=== PATIENT | female | born 1970 | race African-American/Black ===

== ENCOUNTER 2020-02-29 10:42 | Emergency (ER) | payer MEDICAID ==
[~2020-02-29] VITALS: Ht 157.5 cm; Wt 100.0 kg
[2020-02-29] MEDS ORDERED: FAMOTIDINE 20MG/2ML VIAL IV STA (11:38)
[2020-02-29] MEDS ORDERED: MORPHINE SULFATE 4 MG/ML CPJ (NOT FOR IM USE) IV STA (11:38)
[2020-02-29] MEDS ORDERED: ONDANSETRON HCL 4MG/2ML INJ IV STA (11:38)
[2020-02-29] MEDS ORDERED: SODIUM CHLORIDE 0.9% 1,000 ML IV ONE (11:38)
[2020-02-29 11:52] LABS: BASOPHILS % 0.5 % (0.0-2.0); EOSINOPHILS % 0.1 % (0.0-5.0); HEMATOCRIT. 47.3 % (36.0-48.0); HEMOGLOBIN. 15.8 g/dL (12.0-16.0); LYMPHOCYTES % 20.5 % (20.0-50.0); MEAN CORPUSCULAR HEMOGLOBIN 28.1 pg (28.0-32.0); MEAN PLATELET VOLUME 8.8 fl (7.4-10.4); MONOCYTES % 8.4 % (2.0-8.0); NEUTROPHILS % 70.5 % (40.0-76.0); PLATELET 348 x1000/uL (130-400); RED BLOOD CELL COUNT 5.63 mill/uL (4.2-5.4); RED CELL DISTRIBUTION WIDTH 16.6 % (11.6-14.6)
[2020-02-29 12:03] LABS: CHLORIDE 90 mEq/L (98-107)
[2020-02-29] MEDS ORDERED: KCL 20MEQ/100ML PREMIX 100 ML IV ONE (12:15)
[2020-02-29] MEDS ORDERED: MAGNESIUM CITRATE 300ML SOLUTION PO SCH (13:15)
[2020-02-29 13:24] LABS: INR 1.1
[2020-02-29 13:34] LABS: CLARITY URINE CLOUDY (CLEAR); COLOR URINE DARK YELLOW (YELLOW); KETONES URINE 3+ (NEGATIVE); LEUKOCYTE ESTERASE URINE 1+ (NEGATIVE); NITRITE URINE POSITIVE (NEGATIVE); OCCULT BLOOD URINE NEGATIVE (NEGATIVE); PH URINE 5.5 (4.5-8.0); PROTEIN URINE 2+ (NEGATIVE); SPECIFIC GRAVITY URINE 1.036 (1.005-1.030)
[2020-02-29 14:35] VITALS: BP 111/60
== END 2020-02-29 14:59 | disposition home or self-care (01) ==
LOC: ER 10:56
DX: R11.2 Nausea with vomiting, unspecified (principal); E87.6 Hypokalemia; J45.909 Unspecified asthma, uncomplicated; Z98.890 Other specified postprocedural states; Z98.84 Bariatric surgery status
CPT/HCPCS: 36415; 74018; 80053; 81003; 82962; 83690; 85025; 85610; 96361; 96365; 96375; 99285; J2270; J2405; J3480; J3490; J7030

== ENCOUNTER 2020-03-31 22:06 | Inpatient (IN) | payer MEDICAID ==
[~2020-03-31] VITALS: Ht 157.5 cm; Wt 110.7 kg
[2020-04-01 00:55] LABS: BASOPHILS % 0.7 % (0.0-2.0); EOSINOPHILS % 0.4 % (0.0-5.0); HEMATOCRIT. 40.1 % (36.0-48.0); HEMOGLOBIN. 13.4 g/dL (12.0-16.0); LYMPHOCYTES % 20.5 % (20.0-50.0); MEAN CORPUSCULAR HEMOGLOBIN 29.1 pg (28.0-32.0); MEAN CORPUSCULAR VOLUME 86.8 fL (81.0-99.0); MEAN PLATELET VOLUME 8.1 fl (7.4-10.4); MONOCYTES % 6.2 % (2.0-8.0); NEUTROPHILS % 72.2 % (40.0-76.0); PLATELET 331 x1000/uL (130-400); RED BLOOD CELL COUNT 4.62 mill/uL (4.2-5.4); RED CELL DISTRIBUTION WIDTH 17.7 % (11.6-14.6)
[2020-04-01 00:57] LABS: CHLORIDE 96 mEq/L (98-107)
[2020-04-01 01:02] LABS: ETHANOL BLOOD < 10 mg/dL
[2020-04-01 01:04] LABS: LDL CHOLESTEROL 102 mg/dL (5-100)
[2020-04-01 01:08] LABS: INR 1.1; PROTHROMBIN TIME 11.7 sec (9.6-11.0)
[2020-04-01] MEDS ORDERED: MORPHINE SULFATE 4 MG/ML CPJ (NOT FOR IM USE) IV STA (01:52)
[2020-04-01] MEDS ORDERED: ONDANSETRON HCL 4MG/2ML INJ IV STA (01:52)
[2020-04-01] MEDS ORDERED: POTASSIUM CHLORIDE 20MEQ TABLET SR PO ONE (02:00)
[2020-04-01] MEDS ORDERED: HYDRALAZINE 20MG/ML VIAL IV PRN (06:00)
[2020-04-01] MEDS ORDERED: CLONIDINE 0.1MG TABLET PO PRN (13:30)
[2020-04-01] MEDS ORDERED: IPRATROPIUM/ALBUTEROL 0.5-3(2.5)MG/3ML NEB HHN PRN (13:30)
[2020-04-01] MEDS ORDERED: DOCUSATE SODIUM 100MG CAPSULE PO PRN (13:30)
[2020-04-01] MEDS ORDERED: ACETAMINOPHEN 325MG TABLET PO PRN (13:30)
[2020-04-01] MEDS ORDERED: LORAZEPAM 0.5MG TABLET PO PRN (13:30)
[2020-04-01] MEDS: MORPHINE SULFATE 2 MG/ML CPJ (NOT FOR IM USE) IV PRN ×2 (14:08→21:43)
[2020-04-01] MEDS: ONDANSETRON HCL 4MG/2ML INJ IV PRN ×2 (14:09→23:57)
[2020-04-01] MEDS ORDERED: POTASSIUM CHLORIDE INJ 40 MEQ in DEXT 5% WATER 250 ML IV SCH (15:00)
[2020-04-01 16:40] VITALS: BP 111/72
[2020-04-01] MEDS ORDERED: MAGNESIUM/ALUMINUM HYDROXIDE/SIMETHICONE 30ML UDC PO PRN (18:00)
[2020-04-01] MEDS ORDERED: SODIUM CHLORIDE 0.9% 1000ML BAG (SEPSIS BOLUS) IV ONE (18:00)
[2020-04-01] MEDS ORDERED: PANTOPRAZOLE SODIUM 40 MG/VIAL IV ONE (18:00)
[2020-04-01] MEDS ORDERED: SODIUM CHLORIDE 0.9% 1,500 ML IV ONE (18:15)
[2020-04-01] MEDS: CALCIUM CARBONATE 500MG TABLET CHEW PO SCH (18:17)
[2020-04-01] MEDS ORDERED: SODIUM CHLORIDE 0.9% 1,000 ML IV ONE (18:30)
[2020-04-01] MEDS ORDERED: SODIUM CHLORIDE 0.9% 500 ML IV ONE (19:00)
[2020-04-01] MEDS ORDERED: MAGNESIUM 2 G PREMIX 50 ML IV ONE (19:30)
[2020-04-02] VITALS: BP 113/66
[2020-04-02] MEDS: LACTATED RINGERS 1,000 ML IV SCH ×3 (00:12→13:43)
[2020-04-02] MEDS: MORPHINE SULFATE 2 MG/ML CPJ (NOT FOR IM USE) IV PRN ×5 (02:08→21:33)
[2020-04-02 04:00] VITALS: BP 117/74
[2020-04-02 06:12] LABS: CHLORIDE 102 mEq/L (98-107)
[2020-04-02 06:27] LABS: LDL CHOLESTEROL 85 mg/dL (5-100)
[2020-04-02 06:29] LABS: CREATINE KINASE 28 IU/L (26-192)
[2020-04-02 06:30] LABS: HDL CHOLESTEROL 37 mg/dL (40-59)
[2020-04-02 06:33] LABS: BASOPHILS % 0.7 % (0.0-2.0); EOSINOPHILS % 2.5 % (0.0-5.0); HEMATOCRIT. 34.7 % (36.0-48.0); HEMOGLOBIN. 11.7 g/dL (12.0-16.0); LYMPHOCYTES % 25.6 % (20.0-50.0); MEAN CORPUSCULAR HEMOGLOBIN 29.3 pg (28.0-32.0); MEAN CORPUSCULAR VOLUME 86.6 fL (81.0-99.0); MEAN PLATELET VOLUME 8.2 fl (7.4-10.4); MONOCYTES % 7.6 % (2.0-8.0); NEUTROPHILS % 63.6 % (40.0-76.0); PLATELET 262 x1000/uL (130-400); RED CELL DISTRIBUTION WIDTH 17.7 % (11.6-14.6)
[2020-04-02] MEDS: ONDANSETRON HCL 4MG/2ML INJ IV PRN ×3 (06:59→21:32)
[2020-04-02 08:00] VITALS: BP 108/65
[2020-04-02] MEDS: CALCIUM CARBONATE 500MG TABLET CHEW PO SCH ×3 (08:36→16:49)
[2020-04-02] MEDS: PANTOPRAZOLE 40MG DR TABLET PO SCH (08:37)
[2020-04-02] MEDS ORDERED: POTASSIUM CHLORIDE INJ 40 MEQ in DEXT 5% WATER 250 ML IV SCH (11:00)
[2020-04-02 12:00] VITALS: BP 123/74
[2020-04-02 16:00] VITALS: BP 126/80
[2020-04-02 20:00] VITALS: BP 109/70
[2020-04-03] VITALS: BP 116/75
[2020-04-03] MEDS: LACTATED RINGERS 1,000 ML IV SCH ×3 (03:26→23:21)
[2020-04-03 04:00] VITALS: BP 119/85
[2020-04-03] MEDS: ONDANSETRON HCL 4MG/2ML INJ IV PRN ×4 (04:19→23:21)
[2020-04-03] MEDS: MORPHINE SULFATE 2 MG/ML CPJ (NOT FOR IM USE) IV PRN ×4 (04:19→21:22)
[2020-04-03] MEDS: PANTOPRAZOLE 40MG DR TABLET PO SCH (06:14)
[2020-04-03 07:14] LABS: CHLORIDE 104 mEq/L (98-107)
[2020-04-03 07:31] LABS: BASOPHILS % 0.7 % (0.0-2.0); EOSINOPHILS % 4.4 % (0.0-5.0); LYMPHOCYTES % 25.5 % (20.0-50.0); MEAN CORPUSCULAR HEMOGLOBIN 29.2 pg (28.0-32.0); MEAN CORPUSCULAR VOLUME 87.4 fL (81.0-99.0); MEAN PLATELET VOLUME 8.4 fl (7.4-10.4); MONOCYTES % 7.4 % (2.0-8.0); PLATELET 284 x1000/uL (130-400); RED BLOOD CELL COUNT 4.12 mill/uL (4.2-5.4); RED CELL DISTRIBUTION WIDTH 17.5 % (11.6-14.6)
[2020-04-03 08:00] VITALS: BP 93/50
[2020-04-03] MEDS: HYDROCODONE/APAP 7.5/325MG 1 TAB TABLET PO PRN (09:09)
[2020-04-03 12:00] VITALS: BP 102/61
[2020-04-03] MEDS ORDERED: POTASSIUM CHLORIDE 20MEQ TABLET SR PO NR (13:00)
[2020-04-03 16:00] VITALS: BP 100/65
[2020-04-03] MEDS ORDERED: SIMETHICONE 80MG TABLET CHEW PO PRN (16:45)
[2020-04-03] MEDS ORDERED: METOCLOPRAMIDE HCL 10MG/2ML VIAL IV NR (16:48)
[2020-04-03 20:00] VITALS: BP 111/71
[2020-04-04] VITALS: BP 111/71
[2020-04-04] MEDS: MORPHINE SULFATE 2 MG/ML CPJ (NOT FOR IM USE) IV PRN ×3 (02:57→12:58)
[2020-04-04 04:00] VITALS: BP 103/66
[2020-04-04] MEDS: LACTATED RINGERS 1,000 ML IV SCH ×2 (05:38→16:00)
[2020-04-04] MEDS: ONDANSETRON HCL 4MG/2ML INJ IV PRN ×3 (05:49→15:56)
[2020-04-04] MEDS: PANTOPRAZOLE 40MG DR TABLET PO SCH (06:24)
[2020-04-04 06:45] LABS: *AMPHETAMINES SCREEN URINE NEGATIVE (NEGATIVE); *BARBITURATES SCREEN URINE NEGATIVE (NEGATIVE); *BENZODIAZEPINES SCREEN URINE NEGATIVE (NEGATIVE); CANNABINOID URINE SCREEN PRESUMTIVE POSITIVE (NEGATIVE)
[2020-04-04 06:46] LABS: METHADONE URINE SCREEN NEGATIVE (NEGATIVE); OPIATES URINE SCREEN PRESUMTIVE POSITIVE (NEGATIVE); PHENCYCLIDINE URINE SCREEN NEGATIVE (NEGATIVE)
[2020-04-04 06:54] LABS: *COCAINE SCREEN URINE NEGATIVE (NEGATIVE)
[2020-04-04] MEDS ORDERED: DIATR MEGLU/DIATRIZOATE SOLN 120ML ONE (08:40)
[2020-04-04 08:51] VITALS: BP 109/77
[2020-04-04] MEDS ORDERED: PANT40TA4 PO (10:43)
[2020-04-04 12:00] VITALS: BP 110/78
[2020-04-04 13:12] VITALS: BP 110/78
[2020-04-04] MEDS ORDERED: FAMOTIDINE 20MG TABLET PO SCH (14:30)
[2020-04-04] MEDS: HYDROCODONE/APAP 7.5/325MG 1 TAB TABLET PO PRN (15:51)
[2020-04-04 16:48] VITALS: BP 100/66
[2020-04-05] MEDS ORDERED: FAMOTIDINE 20MG TABLET PO SCH (09:00)
== END 2020-04-04 17:45 | disposition home or self-care (01) | DRG 54 ==
LOC: ER 22:06 → EDBEDREQTM 23:42 → EDBEDREQSVC 23:42 → EDBEDREQ 23:42 → EDBEDREQTM 23:43 → 7WST 04-01 04:41 → EDBEDREQDT 04-01 04:58 → EDBEDREQ 04-01 04:58 → EDBEDREQTM 04-01 04:58 → ENRESERV 04-01 11:06 → CANRESERV 04-01 11:06 → ENRESERV 04-01 14:40 → 7WST 04-01 16:52 → 8WST 04-02 10:32
PROVIDERS: ADMIT Internal Medicine; ATTEND Internal Medicine
DX: G43.109 Migraine with aura, not intractable, without status migrainosus (principal); E43 Unspecified severe protein-calorie malnutrition; E66.01 Morbid (severe) obesity due to excess calories; E78.5 Hyperlipidemia, unspecified; E87.6 Hypokalemia; J45.909 Unspecified asthma, uncomplicated; K21.9 Gastro-esophageal reflux disease without esophagitis; I16.0 Hypertensive urgency; I10 Essential (primary) hypertension; M19.90 Unspecified osteoarthritis, unspecified site; Z20.828 Contact with and (suspected) exposure to other viral communicable diseases; M16.0 Bilateral primary osteoarthritis of hip; Z86.73 Personal history of transient ischemic attack (TIA), and cerebral infarction without residual deficits; Z68.41 Body mass index [BMI] 40.0-44.9, adult; Z98.84 Bariatric surgery status; Z79.899 Other long term (current) drug therapy
CPT/HCPCS: 36415; 70544; 70553; 71045; 74176; 74246; 80048; 80053; 80061; 80305; 80320; 82550; 83036; 83721; 83735; 83880; 84132; 84484; 85025; 93005; 96374; 99285; C9113; J2270; J2405; J2765; J3475; J3480; J7060; J7120; Q9963; G0480; U0003-CS

== ENCOUNTER 2020-04-23 19:20 | Inpatient (IN) | payer MEDICAID ==
[~2020-04-23] VITALS: Ht 157.5 cm; Wt 111.7 kg
[~2020-04-23 19:20] MED LIST: PANT40TA4 PO
[2020-04-23] MEDS ORDERED: MORPHINE SULFATE 4 MG/ML CPJ (NOT FOR IM USE) IV STA (20:25)
[2020-04-23] MEDS ORDERED: ONDANSETRON HCL 4MG/2ML INJ IV STA (20:25)
[2020-04-23] MEDS ORDERED: ASPIRIN 81MG TABLET PO ONE (20:30)
[2020-04-23] MEDS ORDERED: NITROGLYCERIN OINT 1GM/INCH UDPKT TD ONE (20:30)
[2020-04-23 21:04] LABS: CHLORIDE 93 mEq/L (98-107)
[2020-04-23 21:06] LABS: HCG SCREEN NEGATIVE
[2020-04-23 21:07] LABS: INR 1.1; PROTHROMBIN TIME 11.4 sec (9.6-11.0)
[2020-04-23 21:08] LABS: ETHANOL BLOOD < 10 mg/dL
[2020-04-23 21:14] LABS: BASOPHILS % 0.4 % (0.0-2.0); EOSINOPHILS % 0.1 % (0.0-5.0); HEMATOCRIT. 40.6 % (36.0-48.0); HEMOGLOBIN. 13.5 g/dL (12.0-16.0); LYMPHOCYTES % 17.1 % (20.0-50.0); MEAN CORPUSCULAR HEMOGLOBIN 29.2 pg (28.0-32.0); MEAN CORPUSCULAR VOLUME 87.8 fL (81.0-99.0); MEAN PLATELET VOLUME 8.9 fl (7.4-10.4); MONOCYTES % 7.4 % (2.0-8.0); PLATELET 486 x1000/uL (130-400); RED BLOOD CELL COUNT 4.63 mill/uL (4.2-5.4); RED CELL DISTRIBUTION WIDTH 16.2 % (11.6-14.6)
[2020-04-23] MEDS ORDERED: POTASSIUM CHLORIDE 20MEQ TABLET SR PO NR (22:30)
[2020-04-23] MEDS ORDERED: KCL 10MEQ/50ML PREMIX 50 ML IV ONE (22:30)
[2020-04-23] MEDS ORDERED: SODIUM CHLORIDE 0.9% 1,000 ML IV ONE (23:31)
[2020-04-24] MEDS ORDERED: MORPHINE SULFATE 2 MG/ML CPJ (NOT FOR IM USE) IV ONE ×2 (04:05→08:20)
[2020-04-24] MEDS ORDERED: ONDANSETRON HCL 4MG/2ML INJ ONE (08:21)
[2020-04-24 08:29] LABS: *AMPHETAMINES SCREEN URINE NEGATIVE (NEGATIVE); *BARBITURATES SCREEN URINE NEGATIVE (NEGATIVE); *BENZODIAZEPINES SCREEN URINE NEGATIVE (NEGATIVE); *COCAINE SCREEN URINE NEGATIVE (NEGATIVE); METHADONE URINE SCREEN NEGATIVE (NEGATIVE)
[2020-04-24 08:30] LABS: CANNABINOID URINE SCREEN PRESUMTIVE POSITIVE (NEGATIVE); OPIATES URINE SCREEN PRESUMTIVE POSITIVE (NEGATIVE); PHENCYCLIDINE URINE SCREEN NEGATIVE (NEGATIVE)
[2020-04-24] MEDS: MORPHINE SULFATE 2 MG/ML CPJ (NOT FOR IM USE) IV PRN ×4 (08:30→22:46)
[2020-04-24] MEDS: ONDANSETRON HCL 4MG/2ML INJ IV PRN ×2 (08:30→18:04)
[2020-04-24] MEDS ORDERED: ACETAMINOPHEN 325MG TABLET PO PRN (08:45)
[2020-04-24] MEDS: ENOXAPARIN 30MG/0.3ML SYR SUBCUT SCH ×2 (11:56→21:07)
[2020-04-24] MEDS: ASPIRIN 81MG TABLET PO SCH (11:56)
[2020-04-24] MEDS ORDERED: POTASSIUM CHLORIDE 20MEQ TABLET SR PO NR ×2 (12:00→17:00)
[2020-04-24] MEDS ORDERED: POTASSIUM CHLORIDE INJ 40 MEQ in SODIUM CHLORIDE 0.9% 250 ML IV NR (12:00)
[2020-04-24 16:00] VITALS: BP 89/52
[2020-04-24] MEDS ORDERED: REGADENOSON 0.4 MG/5 ML IV NR (17:45)
[2020-04-24 18:24] VITALS: BP 89/52
[2020-04-24] MEDS ORDERED: ASPI-1497 PO (19:03)
[2020-04-24 20:33] VITALS: BP 98/56
[2020-04-25] MEDS ORDERED: MAGNESIUM 2 G PREMIX 50 ML IV ONE
[2020-04-25] MEDS: SODIUM CHLORIDE 0.9% 1,000 ML IV SCH ×2 (00:35→17:39)
[2020-04-25] MEDS: ONDANSETRON HCL 4MG/2ML INJ IV PRN ×3 (00:37→13:28)
[2020-04-25 00:44] VITALS: BP 98/53
[2020-04-25] MEDS ORDERED: POTASSIUM CHLORIDE INJ 60 MEQ in DEXT 5% WATER 500 ML IV NR (01:00)
[2020-04-25 04:00] VITALS: BP 101/58
[2020-04-25] MEDS: MORPHINE SULFATE 2 MG/ML CPJ (NOT FOR IM USE) IV PRN ×4 (04:11→20:27)
[2020-04-25 08:12] VITALS: BP 113/66
[2020-04-25] MEDS: ENOXAPARIN 30MG/0.3ML SYR SUBCUT SCH ×2 (08:21→20:26)
[2020-04-25] MEDS ORDERED: POTASSIUM CHLORIDE 20MEQ TABLET SR PO SCH (09:00)
[2020-04-25] MEDS: ASPIRIN 81MG TABLET PO SCH (09:21)
[2020-04-25] MEDS: OMEPRAZOLE 20MG CAPSULE EXTENDED RELEASE PO SCH (10:33)
[2020-04-25 12:04] VITALS: BP 121/75
[2020-04-25 13:04] LABS: BASOPHILS % 0.6 % (0.0-2.0); EOSINOPHILS % 0.7 % (0.0-5.0); HEMATOCRIT. 37.7 % (36.0-48.0); HEMOGLOBIN. 12.5 g/dL (12.0-16.0); LYMPHOCYTES % 20.7 % (20.0-50.0); MEAN CORPUSCULAR HEMOGLOBIN 29.4 pg (28.0-32.0); MEAN PLATELET VOLUME 8.2 fl (7.4-10.4); MONOCYTES % 6.3 % (2.0-8.0); NEUTROPHILS % 71.7 % (40.0-76.0); PLATELET 352 x1000/uL (130-400); RED BLOOD CELL COUNT 4.24 mill/uL (4.2-5.4); RED CELL DISTRIBUTION WIDTH 16.1 % (11.6-14.6)
[2020-04-25 13:12] LABS: CHLORIDE 99 mEq/L (98-107)
[2020-04-25 13:18] LABS: LDL CHOLESTEROL 49 mg/dL (5-100)
[2020-04-25 13:20] LABS: HDL CHOLESTEROL 51 mg/dL (40-59)
[2020-04-25] MEDS ORDERED: BISACODYL 10MG SUPP PR NR (14:00)
[2020-04-25] MEDS ORDERED: BISACODYL 10MG SUPP PR PRN (14:00)
[2020-04-25 16:05] VITALS: BP 105/69
[2020-04-25] MEDS: MULTIVITAMINS,THER W-MINERALS TABLET PO SCH (17:36)
[2020-04-26] VITALS: BP 148/82
[2020-04-26] MEDS: SODIUM CHLORIDE 0.9% 1,000 ML IV SCH ×2 (02:48→07:00)
[2020-04-26] MEDS: MORPHINE SULFATE 2 MG/ML CPJ (NOT FOR IM USE) IV PRN ×4 (02:54→21:44)
[2020-04-26 04:00] VITALS: BP 110/68
[2020-04-26 07:04] LABS: BASOPHILS % 0.5 % (0.0-2.0); CHLORIDE 99 mEq/L (98-107); EOSINOPHILS % 2.3 % (0.0-5.0); HEMATOCRIT. 34.3 % (36.0-48.0); HEMOGLOBIN. 11.1 g/dL (12.0-16.0); MEAN CORPUSCULAR HEMOGLOBIN 28.9 pg (28.0-32.0); MEAN PLATELET VOLUME 8.5 fl (7.4-10.4); MONOCYTES % 8.5 % (2.0-8.0); NEUTROPHILS % 61.7 % (40.0-76.0); PLATELET 282 x1000/uL (130-400); RED BLOOD CELL COUNT 3.85 mill/uL (4.2-5.4); RED CELL DISTRIBUTION WIDTH 16.3 % (11.6-14.6)
[2020-04-26] MEDS: TRAMADOL 50MG TABLET PO PRN (07:21)
[2020-04-26] MEDS: OMEPRAZOLE 20MG CAPSULE EXTENDED RELEASE PO SCH (07:30)
[2020-04-26 08:00] VITALS: BP 120/77
[2020-04-26] MEDS: ENOXAPARIN 30MG/0.3ML SYR SUBCUT SCH ×2 (09:09→21:24)
[2020-04-26] MEDS: ASPIRIN 81MG TABLET PO SCH (09:10)
[2020-04-26] MEDS: POTASSIUM CHLORIDE 20MEQ TABLET SR PO SCH ×5 (09:10→23:30)
[2020-04-26] MEDS: ONDANSETRON HCL 4MG/2ML INJ IV PRN ×3 (09:10→21:44)
[2020-04-26] MEDS: MULTIVITAMINS,THER W-MINERALS TABLET PO SCH (09:11)
[2020-04-26 12:00] VITALS: BP 123/83
[2020-04-26 16:00] VITALS: BP 116/77
[2020-04-26] MEDS ORDERED: DIATR MEGLU/DIATRIZOATE SOLN 30ML PO SCH (16:30)
[2020-04-26] MEDS ORDERED: SORBITOL 70% SOLN 30ML PO NR (17:45)
[2020-04-26] MEDS ORDERED: MAGNESIUM/ALUMINUM HYDROXIDE/SIMETHICONE 30ML UDC PO PRN (17:45)
[2020-04-26 20:00] VITALS: BP 119/77
[2020-04-26] MEDS ORDERED: CALCIUM GLUCONATE 1,000 MG in DEXT 5% WATER 90 ML IV NR (20:00)
[2020-04-26 20:27] LABS: CHLORIDE 101 mEq/L (98-107)
[2020-04-26] MEDS ORDERED: IOHEXOL-300 100 ML BOTTLE ONE (23:50)
[2020-04-27] VITALS: BP 115/73
[2020-04-27] MEDS: SODIUM CHLORIDE 0.9% 1,000 ML IV SCH ×2 (01:37→07:00)
[2020-04-27] MEDS: POTASSIUM CHLORIDE 20MEQ TABLET SR PO SCH (01:38)
[2020-04-27] MEDS: TRAMADOL 50MG TABLET PO PRN (01:51)
[2020-04-27 04:00] VITALS: BP 123/77
[2020-04-27] MEDS: ONDANSETRON HCL 4MG/2ML INJ IV PRN ×4 (04:26→23:30)
[2020-04-27] MEDS: MORPHINE SULFATE 2 MG/ML CPJ (NOT FOR IM USE) IV PRN ×2 (04:27→10:43)
[2020-04-27 06:40] LABS: BASOPHILS % 0.4 % (0.0-2.0); HEMATOCRIT. 32.6 % (36.0-48.0); HEMOGLOBIN. 10.7 g/dL (12.0-16.0); LYMPHOCYTES % 29.9 % (20.0-50.0); MEAN CORPUSCULAR HEMOGLOBIN 29.2 pg (28.0-32.0); MEAN CORPUSCULAR VOLUME 88.7 fL (81.0-99.0); MEAN PLATELET VOLUME 8.2 fl (7.4-10.4); MONOCYTES % 9.6 % (2.0-8.0); NEUTROPHILS % 56.1 % (40.0-76.0); PLATELET 269 x1000/uL (130-400); RED BLOOD CELL COUNT 3.67 mill/uL (4.2-5.4); RED CELL DISTRIBUTION WIDTH 16.2 % (11.6-14.6)
[2020-04-27 07:04] LABS: CHLORIDE 102 mEq/L (98-107)
[2020-04-27] MEDS: OMEPRAZOLE 20MG CAPSULE EXTENDED RELEASE PO SCH (07:20)
[2020-04-27] MEDS ORDERED: POTASSIUM CHLORIDE 20MEQ TABLET SR PO SCH ×3 (07:45→15:00)
[2020-04-27 08:00] VITALS: BP 124/79
[2020-04-27] MEDS: MULTIVITAMINS,THER W-MINERALS TABLET PO SCH (09:00)
[2020-04-27] MEDS: ENOXAPARIN 30MG/0.3ML SYR SUBCUT SCH ×2 (09:56→20:06)
[2020-04-27 12:00] VITALS: BP 132/86
[2020-04-27] MEDS: POTASSIUM CHLORIDE INJ 40 MEQ in SODIUM CHLORIDE 0.9% 1,000 ML IV SCH (13:18)
[2020-04-27] MEDS: ASPIRIN 81MG TABLET PO SCH (15:26)
[2020-04-27 16:00] VITALS: BP 118/78
[2020-04-27] MEDS ORDERED: SORBITOL 70% SOLN 30ML PO SCH (16:15)
[2020-04-27] MEDS: HYDROCODONE/ACETAMINOPHEN 10/325MG TABLET PO PRN ×2 (16:23→22:45)
[2020-04-27] MEDS ORDERED: REGADENOSON 0.4 MG/5 ML IV NR (19:30)
[2020-04-27 20:25] VITALS: BP 127/79
[2020-04-28] VITALS: BP 127/79
[2020-04-28] MEDS: POTASSIUM CHLORIDE INJ 40 MEQ in SODIUM CHLORIDE 0.9% 1,000 ML IV SCH (01:24)
[2020-04-28 04:00] VITALS: BP_SYST 131; BP_SYST 142; BP_DIAS 59; BP_DIAS 70
[2020-04-28] MEDS: OMEPRAZOLE 20MG CAPSULE EXTENDED RELEASE PO SCH (06:12)
[2020-04-28] MEDS: HYDROCODONE/ACETAMINOPHEN 10/325MG TABLET PO PRN ×2 (06:19→12:40)
[2020-04-28 06:51] LABS: BASOPHILS % 0.8 % (0.0-2.0); EOSINOPHILS % 4.6 % (0.0-5.0); HEMATOCRIT. 36.8 % (36.0-48.0); HEMOGLOBIN. 11.8 g/dL (12.0-16.0); LYMPHOCYTES % 25.7 % (20.0-50.0); MEAN CORPUSCULAR HEMOGLOBIN 29.6 pg (28.0-32.0); MEAN CORPUSCULAR VOLUME 92.3 fL (81.0-99.0); MONOCYTES % 11.8 % (2.0-8.0); NEUTROPHILS % 57.1 % (40.0-76.0); PLATELET 285 x1000/uL (130-400); RED BLOOD CELL COUNT 3.98 mill/uL (4.2-5.4); RED CELL DISTRIBUTION WIDTH 16.9 % (11.6-14.6)
[2020-04-28 08:06] LABS: CHLORIDE 107 mEq/L (98-107)
[2020-04-28 08:09] VITALS: BP 126/74
[2020-04-28] MEDS: ASPIRIN 81MG TABLET PO SCH (09:00)
[2020-04-28] MEDS: MULTIVITAMINS,THER W-MINERALS TABLET PO SCH (09:00)
[2020-04-28] MEDS: ENOXAPARIN 30MG/0.3ML SYR SUBCUT SCH (10:27)
[2020-04-28 12:10] VITALS: BP 140/90
[2020-04-28] MEDS ORDERED: MORPHINE SULFATE 2 MG/ML CPJ (NOT FOR IM USE) IV SCH (13:00)
[2020-04-28] MEDS ORDERED: REGADENOSON 0.4 MG/5 ML IV ONE (13:10)
[2020-04-28 16:06] VITALS: BP 124/78
[2020-04-28] MEDS ORDERED: OXYC-515 MT ×2 (17:15→17:17)
[2020-04-28 17:24] VITALS: BP 124/78
[2020-04-28] MEDS ORDERED: POTASSIUM CHLORIDE INJ 40 MEQ in SODIUM CHLORIDE 0.9% 1,000 ML IV SCH (18:00)
== END 2020-04-28 17:57 | disposition home or self-care (01) | DRG 241 ==
LOC: ER 19:20 → MICUSO 23:31 → EDBEDREQTM 23:33 → EDBEDREQ 23:33 → 6WST 04-24 17:50
PROVIDERS: ADMIT Internal Medicine; ATTEND Internal Medicine
DX: K29.70 Gastritis, unspecified, without bleeding (principal); K21.9 Gastro-esophageal reflux disease without esophagitis; I69.354 Hemiplegia and hemiparesis following cerebral infarction affecting left non-dominant side; E78.5 Hyperlipidemia, unspecified; E43 Unspecified severe protein-calorie malnutrition; E83.42 Hypomagnesemia; E87.6 Hypokalemia; E87.8 Other disorders of electrolyte and fluid balance, not elsewhere classified; I10 Essential (primary) hypertension; J45.909 Unspecified asthma, uncomplicated; K22.2 Esophageal obstruction; R26.89 Other abnormalities of gait and mobility; D64.9 Anemia, unspecified; I25.10 Atherosclerotic heart disease of native coronary artery without angina pectoris; M16.0 Bilateral primary osteoarthritis of hip; K59.00 Constipation, unspecified; G43.109 Migraine with aura, not intractable, without status migrainosus; Z98.84 Bariatric surgery status; Z68.42 Body mass index [BMI] 45.0-49.9, adult; Z82.61 Family history of arthritis; Z80.9 Family history of malignant neoplasm, unspecified
CPT/HCPCS: 36415; 71045; 74018; 74177; 78452; 80048; 80053; 80061; 80305; 80320; 83735; 83880; 84132; 84145; 84443; 84484; 84703; 85025; 93005; 93017; 93306; 99291; A9500; J0610; J1650; J2270; J2405; J2785; J3475; J3480; J7030; J7050; J7060; Q9963; Q9967; G0480

== ENCOUNTER 2020-05-13 11:19 | Inpatient (IN) | payer MEDICAID ==
[~2020-05-13] VITALS: Ht 157.5 cm; Wt 113.4 kg
[~2020-05-13 11:19] MED LIST changes: +ASPI-1497 PO; +OXYC-515 MT
[2020-05-13] MEDS ORDERED: ONDANSETRON HCL 4MG/2ML INJ IV STA (12:12)
[2020-05-13] MEDS ORDERED: MORPHINE SULFATE 4 MG/ML CPJ (NOT FOR IM USE) IV STA (12:12)
[2020-05-13 12:23] LABS: BASOPHILS % 0.9 % (0.0-2.0); EOSINOPHILS % 0.4 % (0.0-5.0); HEMATOCRIT. 39.9 % (36.0-48.0); HEMOGLOBIN. 12.8 g/dL (12.0-16.0); LYMPHOCYTES % 15.7 % (20.0-50.0); MEAN CORPUSCULAR HEMOGLOBIN 29.3 pg (28.0-32.0); MEAN CORPUSCULAR VOLUME 91.3 fL (81.0-99.0); MEAN PLATELET VOLUME 7.9 fl (7.4-10.4); MONOCYTES % 3.9 % (2.0-8.0); NEUTROPHILS % 79.1 % (40.0-76.0); PLATELET 468 x1000/uL (130-400); RED BLOOD CELL COUNT 4.37 mill/uL (4.2-5.4); RED CELL DISTRIBUTION WIDTH 16.7 % (11.6-14.6)
[2020-05-13 12:29] LABS: CHLORIDE 99 mEq/L (98-107)
[2020-05-13] MEDS ORDERED: POTASSIUM CHLORIDE 20MEQ TABLET SR PO ONE (14:15)
[2020-05-13] MEDS ORDERED: MORPHINE SULFATE 4 MG/ML CPJ (NOT FOR IM USE) IV ONE (15:00)
[2020-05-13 20:09] LABS: CHLORIDE 101 mEq/L (98-107)
[2020-05-13] MEDS: MORPHINE SULFATE 2 MG/ML CPJ (NOT FOR IM USE) IV PRN (20:22)
[2020-05-13 21:00] VITALS: BP 106/71
[2020-05-13 21:48] VITALS: BP 106/71
[2020-05-13] MEDS ORDERED: ONDA4TAB5 PO (22:30)
[2020-05-13] MEDS ORDERED: TOPUD PO (22:31)
[2020-05-13] MEDS ORDERED: ONDANSETRON HCL 4MG TABLET PO PRN (23:00)
[2020-05-13] MEDS ORDERED: ACETAMINOPHEN 325MG TABLET PO PRN (23:00)
[2020-05-14] VITALS (7 sets, daily range): BP systolic 98–168; BP diastolic 59–78
[2020-05-14] MEDS: MORPHINE SULFATE 2 MG/ML CPJ (NOT FOR IM USE) IV PRN ×6 (00:18→21:44)
[2020-05-14] MEDS: POTASSIUM CHLORIDE 20MEQ TABLET SR PO SCH ×3 (00:52→06:15)
[2020-05-14] MEDS ORDERED: SODIUM CHL 0.9% + KCL 20MEQ/L 1,000 ML IV SCH (01:00)
[2020-05-14] MEDS: PANTOPRAZOLE 40MG DR TABLET PO SCH (06:15)
[2020-05-14 07:04] LABS: BASOPHILS % 0.9 % (0.0-2.0); EOSINOPHILS % 0.8 % (0.0-5.0); HEMATOCRIT. 35.4 % (36.0-48.0); HEMOGLOBIN. 11.7 g/dL (12.0-16.0); LYMPHOCYTES % 24.9 % (20.0-50.0); MEAN CORPUSCULAR VOLUME 90.7 fL (81.0-99.0); MEAN PLATELET VOLUME 7.9 fl (7.4-10.4); MONOCYTES % 6.1 % (2.0-8.0); NEUTROPHILS % 67.3 % (40.0-76.0); PLATELET 314 x1000/uL (130-400); RED CELL DISTRIBUTION WIDTH 16.8 % (11.6-14.6)
[2020-05-14 07:07] LABS: CHLORIDE 103 mEq/L (98-107)
[2020-05-14] MEDS: ENOXAPARIN 30MG/0.3ML SYR SUBCUT SCH ×2 (08:32→20:13)
[2020-05-14] MEDS: ASPIRIN 81MG TABLET PO SCH (08:32)
[2020-05-14] MEDS: DEXT 5%/0.45% NACL 1000ML 1,000 ML IV SCH ×2 (12:07→21:45)
[2020-05-14] MEDS: OXYCODONE HCL/ACETAMINOPHEN 5/325MG TABLET PO PRN (15:54)
[2020-05-15] VITALS: BP 105/62
[2020-05-15] MEDS: MORPHINE SULFATE 2 MG/ML CPJ (NOT FOR IM USE) IV PRN ×2 (02:01→06:02)
[2020-05-15 04:00] VITALS: BP 103/68
[2020-05-15] MEDS: PANTOPRAZOLE 40MG DR TABLET PO SCH (06:00)
[2020-05-15 06:06] LABS: CHLORIDE 104 mEq/L (98-107)
[2020-05-15 06:57] LABS: BASOPHILS % 1.1 % (0.0-2.0); EOSINOPHILS % 3.3 % (0.0-5.0); HEMATOCRIT. 34.6 % (36.0-48.0); HEMOGLOBIN. 11.2 g/dL (12.0-16.0); LYMPHOCYTES % 39.9 % (20.0-50.0); MEAN CORPUSCULAR HEMOGLOBIN 29.5 pg (28.0-32.0); MEAN CORPUSCULAR VOLUME 91.3 fL (81.0-99.0); MEAN PLATELET VOLUME 8.4 fl (7.4-10.4); MONOCYTES % 8.6 % (2.0-8.0); NEUTROPHILS % 47.1 % (40.0-76.0); PLATELET 322 x1000/uL (130-400); RED BLOOD CELL COUNT 3.79 mill/uL (4.2-5.4); RED CELL DISTRIBUTION WIDTH 16.6 % (11.6-14.6)
[2020-05-15] MEDS: DEXT 5%/0.45% NACL 1000ML 1,000 ML IV SCH ×2 (07:45→16:28)
[2020-05-15 08:00] VITALS: BP 103/63
[2020-05-15] MEDS: ASPIRIN 81MG TABLET PO SCH (08:22)
[2020-05-15] MEDS: ENOXAPARIN 30MG/0.3ML SYR SUBCUT SCH ×2 (08:22→20:16)
[2020-05-15] MEDS ORDERED: METHOCARBAMOL 500MG TABLET PO PRN (10:00)
[2020-05-15] MEDS: MORPHINE SULFATE 4 MG/ML CPJ (NOT FOR IM USE) IV PRN ×4 (10:17→23:09)
[2020-05-15] MEDS: LIDOCAINE 5% PATCH TOP SCH (11:40)
[2020-05-15 11:55] VITALS: BP 107/56
[2020-05-15] MEDS: GABAPENTIN 300MG CAPSULE PO SCH ×2 (13:22→20:16)
[2020-05-15] MEDS: METHYL SALICYLATE/MENTHOL CREAM 85GM TOP SCH ×3 (13:23→23:12)
[2020-05-15 16:00] VITALS: BP 95/64
[2020-05-15 20:00] VITALS: BP 98/47
[2020-05-16] VITALS: BP 95/53
[2020-05-16] MEDS: DEXT 5%/0.45% NACL 1000ML 1,000 ML IV SCH ×2 (02:35→13:11)
[2020-05-16 04:00] VITALS: BP 105/73
[2020-05-16] MEDS: MORPHINE SULFATE 4 MG/ML CPJ (NOT FOR IM USE) IV PRN ×5 (04:59→22:00)
[2020-05-16] MEDS: PANTOPRAZOLE 40MG DR TABLET PO SCH (05:01)
[2020-05-16] MEDS: METHYL SALICYLATE/MENTHOL CREAM 85GM TOP SCH ×3 (05:01→17:52)
[2020-05-16] MEDS: GABAPENTIN 300MG CAPSULE PO SCH ×3 (05:02→21:04)
[2020-05-16 08:00] VITALS: BP 100/62
[2020-05-16] MEDS: ASPIRIN 81MG TABLET PO SCH (08:14)
[2020-05-16] MEDS: ENOXAPARIN 30MG/0.3ML SYR SUBCUT SCH ×2 (08:14→21:05)
[2020-05-16] MEDS: LIDOCAINE 5% PATCH TOP SCH (08:16)
[2020-05-16 12:00] VITALS: BP 102/68
[2020-05-16] MEDS: ONDANSETRON HCL 4MG TABLET PO PRN (13:11)
[2020-05-16 16:00] VITALS: BP 91/54
[2020-05-16 20:00] VITALS: BP 105/66
[2020-05-17] VITALS: BP 101/61
[2020-05-17] MEDS: DEXT 5%/0.45% NACL 1000ML 1,000 ML IV SCH ×3 (01:19→20:09)
[2020-05-17] MEDS: METHYL SALICYLATE/MENTHOL CREAM 85GM TOP SCH ×4 (01:19→18:27)
[2020-05-17] MEDS: MORPHINE SULFATE 4 MG/ML CPJ (NOT FOR IM USE) IV PRN ×6 (02:06→22:58)
[2020-05-17 04:00] VITALS: BP 97/58
[2020-05-17] MEDS: ONDANSETRON HCL 4MG TABLET PO PRN ×2 (05:59→21:12)
[2020-05-17] MEDS: GABAPENTIN 300MG CAPSULE PO SCH ×3 (06:02→21:06)
[2020-05-17] MEDS: PANTOPRAZOLE 40MG DR TABLET PO SCH (06:11)
[2020-05-17 08:00] VITALS: BP 79/54
[2020-05-17] MEDS: ASPIRIN 81MG TABLET PO SCH (08:25)
[2020-05-17] MEDS: ENOXAPARIN 30MG/0.3ML SYR SUBCUT SCH ×2 (08:26→21:06)
[2020-05-17] MEDS: LIDOCAINE 5% PATCH TOP SCH (08:31)
[2020-05-17 08:54] LABS: CHLORIDE 107 mEq/L (98-107)
[2020-05-17 12:00] VITALS: BP_SYST 104; BP_SYST 109; BP_DIAS 56; BP_DIAS 73
[2020-05-17 16:00] VITALS: BP 108/52
[2020-05-17 20:00] VITALS: BP 103/64
[2020-05-17] MEDS: OXYCODONE HCL/ACETAMINOPHEN 5/325MG TABLET PO PRN (21:13)
[2020-05-18] VITALS: BP 97/50
[2020-05-18] MEDS: METHYL SALICYLATE/MENTHOL CREAM 85GM TOP SCH ×4 (00:55→18:02)
[2020-05-18] MEDS: ONDANSETRON HCL 4MG TABLET PO PRN ×2 (01:18→10:17)
[2020-05-18] MEDS: OXYCODONE HCL/ACETAMINOPHEN 5/325MG TABLET PO PRN ×3 (01:20→17:13)
[2020-05-18 04:00] VITALS: BP 104/51
[2020-05-18] MEDS: MORPHINE SULFATE 4 MG/ML CPJ (NOT FOR IM USE) IV PRN ×4 (05:53→20:19)
[2020-05-18] MEDS: GABAPENTIN 300MG CAPSULE PO SCH ×3 (05:54→21:07)
[2020-05-18] MEDS: DEXT 5%/0.45% NACL 1000ML 1,000 ML IV SCH ×2 (05:54→15:29)
[2020-05-18] MEDS: PANTOPRAZOLE 40MG DR TABLET PO SCH (06:11)
[2020-05-18 08:00] VITALS: BP 111/51
[2020-05-18] MEDS: ASPIRIN 81MG TABLET PO SCH (08:42)
[2020-05-18] MEDS: ENOXAPARIN 30MG/0.3ML SYR SUBCUT SCH ×2 (08:44→21:08)
[2020-05-18] MEDS: LIDOCAINE 5% PATCH TOP SCH (08:52)
[2020-05-18 11:59] VITALS: BP 96/51
[2020-05-18 16:00] VITALS: BP 98/54
[2020-05-18] MEDS ORDERED: LACTULOSE 20G/30ML UDC PO NR (18:45)
[2020-05-18 20:00] VITALS: BP 86/55
[2020-05-19] VITALS: BP 120/79
[2020-05-19] MEDS: METHYL SALICYLATE/MENTHOL CREAM 85GM TOP SCH ×3 (00:32→12:00)
[2020-05-19] MEDS: MORPHINE SULFATE 4 MG/ML CPJ (NOT FOR IM USE) IV PRN ×3 (00:34→08:54)
[2020-05-19] MEDS: OXYCODONE HCL/ACETAMINOPHEN 5/325MG TABLET PO PRN ×2 (02:17→06:37)
[2020-05-19 04:00] VITALS: BP 114/67
[2020-05-19] MEDS: ONDANSETRON HCL 4MG TABLET PO PRN ×2 (04:38→13:09)
[2020-05-19] MEDS: GABAPENTIN 300MG CAPSULE PO SCH ×2 (06:18→13:09)
[2020-05-19] MEDS: PANTOPRAZOLE 40MG DR TABLET PO SCH (06:18)
[2020-05-19 08:00] VITALS: BP 110/69
[2020-05-19] MEDS: ASPIRIN 81MG TABLET PO SCH (08:51)
[2020-05-19] MEDS: LIDOCAINE 5% PATCH TOP SCH (08:53)
[2020-05-19] MEDS: ENOXAPARIN 30MG/0.3ML SYR SUBCUT SCH (08:55)
[2020-05-19 12:00] VITALS: BP 122/65
[2020-05-19] MEDS ORDERED: OXYC-515 MT (12:14)
[2020-05-19] MEDS ORDERED: LIDO700A30 TP (12:55)
[2020-05-19] MEDS ORDERED: GABA-531 PO (12:55)
[2020-05-19] MEDS ORDERED: OXYCODONE HCL/ACETAMINOPHEN 5/325MG TABLET PO PRN (13:00)
[2020-05-19 15:30] VITALS: BP 122/65
== END 2020-05-19 16:50 | disposition home or self-care (01) | DRG 48 ==
LOC: ER 11:19 → 8WST 14:55 → ENRESERV 20:34
PROVIDERS: ADMIT Internal Medicine; ATTEND Internal Medicine
DX: G90.8 Other disorders of autonomic nervous system (principal); S33.5XXA Sprain of ligaments of lumbar spine, initial encounter; W18.30XA Fall on same level, unspecified, initial encounter; E87.6 Hypokalemia; E43 Unspecified severe protein-calorie malnutrition; E66.9 Obesity, unspecified; E78.5 Hyperlipidemia, unspecified; I10 Essential (primary) hypertension; J45.909 Unspecified asthma, uncomplicated; K21.9 Gastro-esophageal reflux disease without esophagitis; M54.16 Radiculopathy, lumbar region; R26.2 Difficulty in walking, not elsewhere classified; M46.1 Sacroiliitis, not elsewhere classified; R07.9 Chest pain, unspecified; M81.0 Age-related osteoporosis without current pathological fracture; M19.90 Unspecified osteoarthritis, unspecified site; G43.909 Migraine, unspecified, not intractable, without status migrainosus; S39.012A Strain of muscle, fascia and tendon of lower back, initial encounter; K22.2 Esophageal obstruction; W18.39XA Other fall on same level, initial encounter; Y93.E1 Activity, personal bathing and showering; Z98.84 Bariatric surgery status; Z86.73 Personal history of transient ischemic attack (TIA), and cerebral infarction without residual deficits; Z79.82 Long term (current) use of aspirin; Z79.891 Long term (current) use of opiate analgesic; Z79.899 Other long term (current) drug therapy; Z68.42 Body mass index [BMI] 45.0-49.9, adult; Y92.002 Bathroom of unspecified non-institutional (private) residence as the place of occurrence of the external cause; Y99.8 Other external cause status
CPT/HCPCS: 36415; 72131; 72148; 73030; 73502; 73560; 80048; 80053; 82962; 85025; 93005; 96374; 97162; 97535; 99285; J1650; J2270; J2405; J3480; Q0162

== ENCOUNTER 2023-11-06 09:40 | Emergency (ER) | payer MEDICAID ==
[~2023-11-06] VITALS: Ht 165.1 cm; Wt 70.0 kg
[~2023-11-06 09:40] MED LIST changes: +GABA-532 PO; +LIDO700A30 TP; +ONDA4TAB5 PO; -OXYC-515 MT; +OXYC1TAB12 MT; -PANT40TA4 PO; +PANT40TA51 PO; +TOPUD PO
[2023-11-06 09:44] VITALS: O2SAT 99
[2023-11-06] MEDS: MORPHINE SULFATE 4 MG/ML CPJ (NOT FOR IM USE) IV ONE ×2 (10:00→15:45)
[2023-11-06 10:16] LABS: HEMATOCRIT. 38.3 % (36.0-48.0); HEMOGLOBIN. 12.2 g/dL (12.0-16.0); MEAN CORPUSCULAR HEMOGLOBIN 28.2 pg (28.0-32.0); MEAN CORPUSCULAR VOLUME 88.2 fL (81.0-99.0); MEAN PLATELET VOLUME 7.3 fl (7.4-10.4); PLATELET 193 x1000/uL (130-400); RED BLOOD CELL COUNT 4.35 mill/uL (4.2-5.4); RED CELL DISTRIBUTION WIDTH 13.2 % (11.6-14.6); WHITE BLOOD COUNT 4.9 x1000/uL (4.5-11.0)
[2023-11-06 10:24] LABS: DIFFERENTIAL COMMENT 1
[2023-11-06 10:32] LABS: ALANINE AMINOTRANSFERASE 18 IU/L (10-49); ALBUMIN 4.5 g/dL (3.2-4.8); ASPARTATE AMINOTRANSFERASE 22 IU/L (<34); BILIRUBIN TOTAL 0.3 mg/dL (0.1-1.0); CALCIUM 9.1 mg/dL (8.7-10.4); CARBON DIOXIDE 26 mEq/L (21-32); CHLORIDE 110 mEq/L (98-107); CREATININE 0.7 mg/dL (0.6-1.0); GLUCOSE 98 mg/dL (70-105); POTASSIUM 3.8 mEq/L (3.5-5.1); PROTEIN TOTAL 7.3 g/dL (6.0-8.3); SODIUM 140 mEq/L (136-145); UREA NITROGEN BLOOD 11 mg/dL (9-23)
[2023-11-06 10:33] LABS: D-DIMER 0.21 mg/L FEU (<0.50); PROTHROMBIN TIME 10.9 sec (9.6-11.0)
[2023-11-06 10:36] LABS: ETHANOL BLOOD < 10 mg/dL (<10); TROPONIN I HIGH SENSITIVITY < 4 ng/L (3.0-34)
[2023-11-06 10:56] LABS: PLATELET ESTIMATE NORMAL
[2023-11-06] MEDS: SODIUM CHLORIDE 0.9% 1,000 ML IV ONE (11:29)
[2023-11-06] MEDS: METOCLOPRAMIDE HCL 10MG/2ML VIAL IV ONE ×2 (11:29→17:44)
[2023-11-06] MEDS ORDERED: IOHEXOL-350 100 ML BOTTLE ONE (13:29)
[2023-11-06 15:45] LABS: CLARITY URINE CLEAR (CLEAR); COLOR URINE YELLOW (YELLOW); GLUCOSE URINE NEGATIVE (NEGATIVE); KETONES URINE TRACE (NEGATIVE); LEUKOCYTE ESTERASE URINE NEGATIVE (NEGATIVE); NITRITE URINE NEGATIVE (NEGATIVE); OCCULT BLOOD URINE NEGATIVE (NEGATIVE); PROTEIN URINE TRACE (NEGATIVE); SPECIFIC GRAVITY URINE 1.023 (1.005-1.030)
[2023-11-06 15:58] LABS: *AMPHETAMINES SCREEN URINE NEGATIVE (NEGATIVE); *BARBITURATES SCREEN URINE NEGATIVE (NEGATIVE); *BENZODIAZEPINES SCREEN URINE NEGATIVE (NEGATIVE); *COCAINE SCREEN URINE NEGATIVE (NEGATIVE); CANNABINOID URINE SCREEN PRESUMPTIVE POSITIVE (NEGATIVE); ECSTASY MDMA SCREEN URINE NEGATIVE (NEGATIVE); METHADONE URINE SCREEN Neg (NEGATIVE); OPIATES URINE SCREEN PRESUMPTIVE POSITIVE (NEGATIVE); PHENCYCLIDINE URINE SCREEN NEGATIVE (NEGATIVE)
[2023-11-06 16:19] LABS: WBC URINE NONE SEEN /hpf (0-2)
[2023-11-06 16:20] LABS: BACTERIA URINE TRACE; SQUAMOUS EPITHELIAL CELL URINE FEW /lpf (RARE/1+)
[2023-11-06] MEDS: ACETAMINOPHEN 325MG TABLET PO ONE (16:45)
[2023-11-06] MEDS: MORPHINE SULFATE 4 MG/ML CPJ (NOT FOR IM USE) IV NR (17:44)
[2023-11-06] MEDS: KETOROLAC 15MG/ML VIAL IV ONE (17:44)
[2023-11-06] MEDS ORDERED: IBUP-2029 MT (18:23)
[2023-11-06] MEDS ORDERED: METO-293 MT (18:23)
[2023-11-06 18:35] VITALS: BP 135/81; PULSE 84; RESP 18; TEMP 98.5
== END 2023-11-06 18:58 | disposition home or self-care (01) ==
LOC: ER 09:49
DX: R51.9 Headache, unspecified (principal); H53.8 Other visual disturbances; J45.909 Unspecified asthma, uncomplicated; I10 Essential (primary) hypertension; Z86.73 Personal history of transient ischemic attack (TIA), and cerebral infarction without residual deficits; Z79.899 Other long term (current) drug therapy
CPT/HCPCS: 80053; 80305; 81003; 81025; 80320; 85025; 85379; 85610; 86850; 86900; 86901; 84484; 36415; 70496; 93005; 96361; 96374; 96375; 96376; 99285; Q9967; J1885; J2765; J2270; J7030; Z7610 ×3; G0480

== ENCOUNTER 2023-11-09 09:42 | Emergency (ER) | payer MEDICAID ==
[~2023-11-09] VITALS: Ht 167.6 cm; Wt 81.0 kg
[~2023-11-09 09:42] MED LIST changes: +IBUP-2029 MT; +METO-293 MT
[2023-11-09 09:50] VITALS: O2SAT 68
[2023-11-09] MEDS: MORPHINE SULFATE 10 MG/ML CPJ IM ONE (10:15)
[2023-11-09] MEDS ORDERED: LIDO700A15 TP (14:41)
[2023-11-09] MEDS ORDERED: DICL50TA9 MT (14:41)
[2023-11-09 14:47] VITALS: BP 138/86; PULSE 89; RESP 16; TEMP 98.7
== END 2023-11-09 15:02 | disposition home or self-care (01) ==
LOC: ER 09:42
DX: M48.00 Spinal stenosis, site unspecified (principal); I10 Essential (primary) hypertension; J45.909 Unspecified asthma, uncomplicated; Z79.82 Long term (current) use of aspirin; Z79.899 Other long term (current) drug therapy; Z86.73 Personal history of transient ischemic attack (TIA), and cerebral infarction without residual deficits
CPT/HCPCS: 81025; 72170; 72131; 96372; 99285; J2270; Z7610

== ENCOUNTER 2025-01-28 05:39 | Emergency (ER) | payer MEDICAID, OTHER ==
[~2025-01-28] VITALS: Ht 170.2 cm; Wt 101.0 kg
[~2025-01-28 05:39] MED LIST changes: +DICL50TA9 MT; +GABA-1180 PO; -GABA-532 PO; +LIDO-53 TP
[2025-01-28 05:43] VITALS: O2SAT 100
[2025-01-28] MEDS: MORPHINE SULFATE 4 MG/ML INJ (FOR IV/IM USE) IV STA (06:29)
[2025-01-28 06:53] LABS: CHLORIDE 111 mEq/L (98-107); SODIUM 141 mEq/L (136-145)
[2025-01-28 06:56] LABS: CALCIUM 9.3 mg/dL (8.7-10.4); CARBON DIOXIDE 24 mEq/L (21-32)
[2025-01-28 07:01] LABS: CREATININE 0.7 mg/dL (0.6-1.0); GLUCOSE 93 mg/dL (70-105); UREA NITROGEN BLOOD 7 mg/dL (9-23)
[2025-01-28 07:25] LABS: TROPONIN I HIGH SENSITIVITY < 4 ng/L (3.0-34)
[2025-01-28 07:54] LABS: BASOPHILS % 0.4 % (0.0-2.0); DIFFERENTIAL COMMENT 0; EOSINOPHILS % 1.3 % (0.0-5.0); HEMATOCRIT. 38.4 % (36.0-48.0); HEMOGLOBIN. 12.4 g/dL (12.0-16.0); LYMPHOCYTES % 24.5 % (20.0-50.0); MEAN CORPUSCULAR HEMOGLOBIN 27.9 pg (28.0-32.0); MEAN CORPUSCULAR HGB CONC 32.2 g/dL (31.0-37.0); MEAN CORPUSCULAR VOLUME 86.8 fL (81.0-99.0); MONOCYTES % 8.1 % (2.0-8.0); NEUTROPHILS % 65.7 % (40.0-76.0); PLATELET 307 x1000/uL (130-400); RED BLOOD CELL COUNT 4.42 mill/uL (4.2-5.4); RED CELL DISTRIBUTION WIDTH 14.7 % (11.6-14.6); WHITE BLOOD COUNT 6.5 x1000/uL (4.5-11.0)
[2025-01-28] MEDS: MORPHINE SULFATE 4 MG/ML INJ (FOR IV/IM USE) IV ONE (08:59)
[2025-01-28] MEDS ORDERED: CYCL10TA21 PO (09:28)
[2025-01-28] MEDS ORDERED: HYDR-3735 PO (09:28)
[2025-01-28] MEDS ORDERED: MIRT-89 PO (09:28)
[2025-01-28] MEDS ORDERED: CHOL-4 PO (09:28)
[2025-01-28] MEDS ORDERED: METH-774 PO (09:28)
[2025-01-28] MEDS ORDERED: SUMA25TA9 PO (09:28)
[2025-01-28] MEDS ORDERED: ASPIRIN 81MG EC TABLET PO SCH (09:30)
[2025-01-28] MEDS ORDERED: ACETAMINOPHEN 325MG TABLET PO PRN ×2 (10:00)
[2025-01-28 10:24] VITALS: BP 106/56; PULSE 63; RESP 15; TEMP 37; O2SAT 100
[2025-01-28 10:30] LABS: THYROID STIMULATING HORMONE 1.55 uIU/mL (0.55-4.78)
[2025-01-28] MEDS ORDERED: ENOXAPARIN 30MG/0.3ML SYR SUBCUT SCH (10:30)
[2025-01-28] MEDS ORDERED: ONDANSETRON HCL 4MG/2ML INJ IV PRN (10:30)
[2025-01-28] MEDS ORDERED: METHOCARBAMOL 750MG TABLET PO SCH (13:00)
[2025-01-28] MEDS ORDERED: GABAPENTIN 300MG CAPSULE PO SCH (13:00)
[2025-01-28] MEDS ORDERED: CYCLOBENZAPRINE 10MG TABLET PO SCH (13:00)
[2025-01-28] MEDS ORDERED: HYDROXYZINE 25MG TABLET PO SCH (21:00)
[2025-01-28] MEDS ORDERED: MIRTAZAPINE 15MG TABLET PO SCH (21:00)
[2025-01-28] MEDS ORDERED: ATORVASTATIN CALCIUM 40MG TABLET PO SCH (21:00)
[2025-01-29] MEDS ORDERED: MEDICATION NOT ON FORMULARY EA (Cholecalciferol (Vitamin D3) (Vitamin D3) 1 CAP) PO SCH (09:00)
[2025-01-29] MEDS ORDERED: PANTOPRAZOLE SODIUM 40 MG/VIAL IV SCH (09:00)
[2025-01-29] MEDS ORDERED: SUMATRIPTAN SUCCINATE 25MG TABLET PO SCH (09:00)
[2025-01-29] MEDS ORDERED: LIDOCAINE 5% PATCH TOP SCH (09:00)
== END 2025-01-28 09:12 | disposition short-term general hospital (02) ==
LOC: ER 05:39
DX: R07.89 Other chest pain (principal); J45.909 Unspecified asthma, uncomplicated; I10 Essential (primary) hypertension; Z98.890 Other specified postprocedural states; Z79.899 Other long term (current) drug therapy; Z98.84 Bariatric surgery status; Z99.3 Dependence on wheelchair
CPT/HCPCS: 99285; 96374; 71045; 80061; 80048; 83036; 83880; 84443; 85025; 84484; 36415; 93005; 96376; J2270